=== PATIENT | male | born 1990 | race Caucasian/White ===

== ENCOUNTER 2022-12-08 21:56 | Emergency (ER) | payer OTHER, SELFPAY ==
[2022-12-08 22:11] VITALS: BP 128/71; PULSE 87; RESP 18; TEMP 36.8; O2SAT 99; BMI 26.6
--- NOTE | 2022-12-08 22:59 | CTR_ITS ---
PROCEDURE INFORMATION: Exam: CT Maxillofacial With Contrast Exam date and time: 12/08/2022 11:17 PM Age: 32 years old Clinical indication: Injury or trauma; Blunt trauma (contusions or hematomas); Patient HX: Patient playing baseball and sustained a blow to left maxilla from a baseball. Swelling to left maxilla. ; Additional info: Patient with trauma TECHNIQUE: Imaging protocol: Computed tomography of the face with contrast. Radiation optimization: All CT scans at this facility use at least one of these dose optimization techniques: automated exposure control; mA and/or kV adjustment per patient size (includes targeted exams where dose is matched to clinical indication); or iterative reconstruction. Contrast material: OMNI 350; Contrast volume: 100 ml; Contrast route: INTRAVENOUS (IV); REPORTING DATA: Count of CT and Cardiac NM exams in prior 12 months: This patient has received 0 known CTs and 0 known cardiac nuclear medicine studies in the 12 months prior to the current study. COMPARISON: No relevant prior studies available. RADIATION DOSE METRICS: Total DLP (mGy-cm): 578.08 FINDINGS: Orbital cavities: Orbits are normal. Globes are unremarkable. Bones/joints: Comminuted bilateral nasal fracture with soft tissue swelling over the nose. Paranasal sinuses: Severe left sphenoid sinus disease and mild to moderate left maxillary sinus disease versus high density posttraumatic fluid from nasal fracture. Soft tissues: See Bones/joints finding. CT/CT facial bones w con [id number] IMPRESSION: 1. Severe left sphenoid sinus disease and mild to moderate left maxillary sinus disease versus high density posttraumatic fluid from nasal fracture. 2. Comminuted bilateral nasal fracture, [id number], with soft tissue swelling over the nose, [id number]-right.
[2022-12-08 23:08] VITALS: BP 130/80; PULSE 82; RESP 16; O2SAT 97
[2022-12-08] MEDS: ketorolac 30 mg/mL INJ IVP (23:10)
[2022-12-08] MEDS: tetanus-diphtheria tox (adult) 0.5 mL SDV IM (23:11)
[2022-12-08] MEDS: iohexol 350 mg/mL 500 mL Btl (per mL) IV (23:21)
--- NOTE | 2022-12-09 00:19 | W.ED.TRAUMA ---
HPI - Trauma General: Chief Complaint: Trauma Stated Complaint: nose injury Time Seen by Provider: 12/08/22 22:27 History of Present Illness: Patient is a 32-year-old man that presents to the emergency department with facial trauma. Patient states he was playing softball when he took a line drive to the face. He denies LOC. He has ecchymosis and swelling noted to left eye and bilateral cheeks. He reports congestion. He had epistaxis immediately but none recently. Associated symptoms: Reports epistaxis; Denies abdominal pain, back pain, chest pain, chills, confusion, dizziness, fever(s), headache(s), nausea or vomiting Review of Systems General: Reports: 10 or more systems reviewed and unremarkable except in HPI and below Const: Denies: fever(s), chills, change in appetite, change in weight, fatigue or malaise Eyes: Denies: change in vision, eye discomfort, eye discharge or eye redness ENMT: Reports: nasal congestion, epistaxis and sinus pain; Denies: throat pain, enlarged tonsils, odynophagia, hoarseness, ear or mastoid pain, ear discharge, change in hearing, tinnitus, nasal discharge or post nasal drip Card: Denies: chest pain, palpitations, irregular heart rhythm, edema, dyspnea on exertion, orthopnea or leg pain with exertion Resp: Denies: dyspnea, productive cough, non-productive cough, wheezing, stridor or chest congestion GI: Denies: abdominal pain, nausea, vomiting, dysphagia, diarrhea, constipation, bloating, GI cramping or hematochezia : Denies: flank pain, dysuria, urinary frequency, urinary urgency, urinary hesitancy, oliguria or hematuria Musc: Denies: neck pain, back pain, extremity pain, joint pain, joint swelling, joint redness, joint warmth or muscle weakness Skin/Breast: Denies: rash, pruritus, erythema, photosensitivity or new lesions Neuro: Denies: headache(s), numbness in extremities, weakness in extremities, sensory changes, lack of coordination, difficulty walking, frequent falls, dizziness, confusion, Slurred speech present, difficulty communicating thoughts, seizure-like activity or involuntary movements Endo: Denies: polyuria, polydipsia or tired all the time Sherif/Lymph: Denies: easy bruising or easy bleeding PFSH ED PFSH: Social History Smoking and tobacco status: former smoker Second hand smoke exposure: No Smoking risk assessment/counseling performed?: No Alcohol intake: never Desire information about alcohol rehabilitation?: No Counseling given: No Substance/Drug Use: never Desire information about substance/drug rehabilitation?: No Counseling given: No Adopted: No Caregiver/support person: No Lives independently: Yes Household members: family Housing: House Marital status: Number of children: 2 Highest education level completed: High School Graduate service: No Current occupational status: employed Physical Exam Const: COMMON NORMALS: no acute distress, patient oriented x3 and alert GENERAL APPEARANCE: cooperative ORIENTATION/CONSCIOUSNESS: Yes awake, Yes oriented to person, Yes oriented to place and Yes oriented to time HENMT: COMMON NORMALS: normocephalic and atraumatic HEAD & SCALP: normocephalic and atraumatic FACE & SINUS: normal facial exam FACE & SINUS IMAGES: 1. Erythema and edema/swelling 2. Erythema and edema/swelling 3. Ecchymosis 4. Edema MOUTH: Normal oral and palatal mucosa present THROAT: posterior oropharynx normal Eye: COMMON NORMALS: Equal, round and reactive pupils present, EOMs intact bilaterally, conjunctivae normal and no scleral icterus GENERAL EYE: appearance normal, both eyes and all related structures ALIGNMENT: Yes alignment normal PERIORBITAL: periorbital findings abnormal positive left periorbital swelling, periorbital tenderness, periorbital erythema and periorbital ecchymosis and positive bilateral periorbital swelling CONJUNCTIVA: Yes conjunctivae normal PUPIL: Yes Equal, round and reactive pupils present Neck/C-Spine: COMMON NORMALS: full ROM GENERAL: Yes normal visual inspection Lymph: LYMPHATIC: no lymphadenopathy noted Chest: COMMONS NORMALS: normal inspection of the chest Breast/axilla inspection: Yes no chest deformity, asymmetry, normal contours, no nodules, masses, tenderness Resp: COMMON NORMALS: normal respiratory effort, No retractions, No use of accessory muscles and clear to auscultation bilaterally EFFORT & INSPECTION: Yes able to speak in complete sentences and Yes symmetric chest movement AUSCULTATION: clear to auscultation bilaterally Cardio: COMMON NORMALS: regular rate, regular rhythm and Peripheral pulses 2+ throughout RATE: regular rate RHYTHM: regular rhythm PERIPHERAL PULSES: Peripheral pulses 2+ throughout GI: COMMON NORMALS: Normal to inspection, nondistended, normoactive bowel sounds present, Soft to palpation, non-tender and No hepatosplenomegaly present INSPECTION: Yes normal to inspection AUSCULTATION: Yes normoactive bowel sounds PALPATION: Yes Soft to palpation and Yes No hepatosplenomegaly present RECTAL EXAM: Yes deferred Extremity: COMMON NORMALS: normal to inspection GENERAL: Yes normal exam except as noted Neuro: COMMON NORMALS: patient oriented x3 SENSORIUM/ORIENTATION: Yes alert, Yes oriented to person, Yes oriented to place and Yes oriented to time CRANIAL NERVES: Yes CN normal except as noted Psych: COMMON NORMALS: mental status grossly normal, Normal thought process present, cooperative, activity/motor behavior normal, denies homicidal ideation and denies suicidal ideation THOUGHT PROCESS: Normal thought process present Skin: COMMON NORMALS: no rashes or lesions noted, no wounds and turgor normal GENERAL SKIN EXAM: no rashes or lesions noted and turgor normal Course Vital Signs: Vital signs: Vital Signs Temperature 98.2 F 12/08/22 22:11 Pulse Rate 82 12/08/22 23:08 Respiratory Rate 16 12/08/22 23:08 Blood Pressure 130/80 12/08/22 23:08 Pulse Oximetry 97 12/08/22 23:08 MDM - Trauma Medical Decision Making Patient was evaluated in the emergency department for complaints of facial trauma. Patient underwent a CT of his facial bones which revealed comminuted bilateral nasal fracture, left greater than right with soft tissue swelling over the nose and severe left sphenoid and moderate left maxillary sinus posttraumatic fluid collection. Unfortunately, radiologist did not comment on any potential septal hematoma. I updated patient's tetanus and gave him 30 mg of Toradol for pain. He did have improvement in his symptoms. Referral to oral maxillofacial surgery of [place]. Dr. Galan will be happy to see the patient. I reviewed CT findings with surgeon; he is requested imaging to be uploaded to [facility] PACS. Patient is to call surgeon office on Sunday. All questions were answered Lab Data Radiology Impressions Face CT 12/08/22 22:59 IMPRESSION: 1. Severe left sphenoid sinus disease and mild to moderate left maxillary sinus disease versus high density posttraumatic fluid from nasal fracture. 2. Comminuted bilateral nasal fracture, [id number]-right, with soft tissue swelling over the nose, [id number]-right. Discharge Plan Discharge Patient Disposition: Home Clinical Impression: Closed fracture nasal bone, Contusion of face Condition: Stable Prescriptions: New ketorolac 10 mg tablet 10 mg PO TID PRN (Reason: pain) 5 Days Qty: 15 0RF hydrocodone-acetaminophen 5-325 mg tablet 1 tab PO Q8H PRN (Reason: pain) Qty: 7 0RF No Action pantoprazole [Protonix] 40 mg tablet,delayed release (DR/EC) 40 mg PO DAILY Qty: 30 2RF sucralfate [Carafate] 1 gram tablet 1 g PO BID Qty: 30 2RF Discharge Orders: Discharge ED (Routine); Ordered 12/09/22 Ordered By: Juan Carlos Madsen Referrals: Sherin Yusuf, MANAGEMENT ENGINEER-C [Primary Care Provider] - Discharge Diet: Advance as tolerated Discharge Activity: Resume usual activity Patient Instructions: Nasal Fracture (ED), Opioid Safety, Pain Management Activity Restrictions/Additional Instructions: Please follow-up with Dr. Galan. Call his office Sunday for an appointment. He can be reached at The address is [place]. [place] [address] and [facility] Ice to the face Tylenol or NSAIDs, like ketorolac for mild pain. Coding Level of Care Code ED Patient Ambassador for Malcolm Rinaldi
[2022-12-09 01:06] VITALS: BP 118/72; PULSE 65; RESP 16; O2SAT 99
== END 2022-12-09 01:08 | disposition home or self-care (01) ==
PROVIDERS: Emergency Provider Nurse Practitioner; PCP Nurse Practitioner
DX: S02.2XXA Fracture of nasal bones, initial encounter for closed fracture (principal); W50.0XXA Accidental hit or strike by another person, initial encounter; Y93.64 Activity, baseball
CPT/HCPCS: 70487; 90471; 90714; 96374; 99285; J1885; Q9967

== ENCOUNTER 2024-06-02 13:26 | Emergency (ER) | payer OTHER, SELFPAY ==
[2024-06-02 13:29] VITALS: BP 169/85; PULSE 79; TEMP 36.6; O2SAT 100; BMI 26.9
--- NOTE | 2024-06-02 15:55 | ED_ITS ---
Documented by User: CLAUDIA Gonzalez 06/02/24 16:52 HPI - General Adult 2 General: Chief complaint: Upper Respiratory Infection Stated complaint: sinus and neck pressure Time Seen by Provider: 06/02/24 15:40 Source: patient Mode of arrival: ambulatory Limitations: no limitations History of Present Illness: Patient is a 34-year-old male presents to ED today with a complaint of severe pain to his left retro-orbital region and frontal headache. He states pain seems to radiate into the back of his head and he has severe pain at the base of his skull. 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 He initially thought there could be something wrong with his eye, thus he sought an appointment to see Dr. Gillette. He states the pressures of his eye were normal. Dr. Gillette did not feel he needed a dilated eye exam. Patient states the symptoms have been present for approximately 2 weeks. He feels like symptoms are fairly constant but they do have brief severe exacerbations. He thinks symptoms are worse with bending over. He has not noticed any visual changes or double vision. He has not noticed any drooping or swelling to his face. He has not had fevers. Patient has not been ill recently. He is not having any nasal congestion or discharge. He did have a few dental extractions a month or so ago. Patient is not having any pain with range of motion of his neck. He has not noticed any swollen lymph nodes. Patient has taken up to 1500 mg of Tylenol that does not even touch the pain . Location: head, face and eyes Severity: severe Quality: sharp Pain Consistency: constant Relieving factors: none Associated symptoms: Reports headache(s); Deny chest pain, confusion, dyspnea, malaise, nausea, rash or vomiting Treatments prior to arrival: other (Tylenol) Related Data Home Medications Medication Instructions Recorded Confirmed No Known Home Medications 06/02/24 06/02/24 Allergies Allergy/AdvReac Type Severity Reaction Status Date / Time cefaclor [From [facility]] Allergy ALGY-Hives Verified 06/02/24 13:33 Review of Systems 2 Const: Denies: fever(s), chills, body aches, change in appetite, fatigue or malaise Eyes: Denies: change in vision, blurry vision, blind spots, photophobia, eye discharge, floaters or seeing flashes ENMT: Reports: sinus pain; Denies: throat pain, odynophagia, nasal discharge or nasal congestion Card: Denies: chest pain Resp: Denies: dyspnea GI: Denies: nausea or vomiting Musc: Denies: neck pain, back pain, extremity pain, extremity swelling, joint pain or joint swelling Skin/Breast: Denies: rash Neuro: Reports: headache(s); Denies: numbness in extremities, weakness in extremities, sensory changes, lack of coordination, difficulty walking, dizziness or confusion PFSH ED 2 PFSH: Social History Smoking and tobacco/nicotine status: former use of tobacco/nicotine Second hand smoke exposure: No Alcohol intake: never Substance/Drug Use: never Adopted: No Caregiver/support person: No Lives independently: Yes Household members: family Housing: House Marital status: Number of children: 2 Highest education level completed: High School Graduate service: No Current occupational status: employed Physical Exam 2 Const: COMMON NORMALS: no acute distress, average body habitus, patient oriented x3, no limitations, healthy appearing, alert and well nourished G ENERAL APPEARANCE: cooperative ORIENTATION/CONSCIOUSNESS: Yes awake, Yes oriented to person, Yes oriented to place and Yes oriented to time HENMT: COMMON NORMALS: normocephalic, atraumatic, external ears normal, Normal external nose present and Normal nasal mucous membranes and turbinates present HEAD & SCALP: normal to inspection, normocephalic and atraumatic FACE & SINUS: normal facial exam and sinuses nontender NOSE: Normal external nose present, Normal nares present, No nasal polyps present, Normal nasal mucous membranes and turbinates present, Normal septum present and No nasal discharge present EXTERNAL EAR: Yes external ears normal, Yes mastoids normal and Yes no periauricular adenopathy MOUTH: Normal oral and palatal mucosa present and lip normal TEETH & GINGIVA: Yes fair dentition THROAT: posterior oropharynx normal and tonsils normal Eye: COMMON NORMALS: Equal, round and reactive pupils present, EOMs intact bilaterally, conjunctivae normal and no scleral icterus GENERAL EYE: normal light reflex VISUAL ACUITY: Yes acuity normal CONJUNCTIVA: Yes conjunctivae normal SCLERA: sclerae normal CORNEA: Yes corneas normal P UPIL: Yes Equal, round and reactive pupils present DIRECT OPHTHALMOSCOPY: Yes normal light reflex OTHER: possible mild ptosis left Neck/C-Spine: COMMON NORMALS: full ROM, no lymphadenopathy and no meningeal signs GENERAL: Yes normal visual inspection Resp: COMMON NORMALS: normal respiratory effort and clear to auscultation bilaterally AUSCULTATION: clear to auscultation bilaterally Cardio: COMMON NORMALS: regular rate and regular rhythm RATE: regular rate RHYTHM: regular rhythm Neuro: AMANDA COMA SCALE: document GCS findings [place] coma scale eye opening: Spontaneous Amanda coma scale verbal response: Orientated Amanda coma scale motor response: Obey commands [place] coma scale total score: 15 COMMON NORMALS: patient oriented x3, CN's II-XII intact bilaterally, moves all extremities, no focal motor deficits and no sensory deficits noted S ENSORIUM/ORIENTATION: Yes alert, Yes oriented to person, Yes oriented to place and Yes oriented to time MENINGEAL SIGNS: Yes no meningeal signs Skin: COMMON NORMALS: no rashes or lesions noted GENERAL SKIN EXAM: no rashes or lesions noted Course 2 ED course: Patient is a nice 34 yo otherwise healthy male here for severe left retro- orbital pain/frontal headache radiating to the back/base of his head. It is sharp, severe, unilateral, worsened by positional change and unaffected by OTC analgesics. I think we have to consider emergent etiologies including cavernous sinus thrombosis, tumor, etc. I have spoken to Dr. Mejia and Dr. Valentino about imaging and we will do CT head and CTA venography. Vital Signs: Vital signs: Vital Signs Temperature 97.9 F 06/02/24 13:29 Pulse Rate 79 06/02/24 13:29 Blood Pressure 169/85 06/02/24 13:29 Pulse Oximetry 100 06/02/24 13:29 Oxygen Delivery Me thod Room Air 06/02/24 13:29 [facility] - General Adult Lab Data 06/02/24 16:50 06/02/24 16:[address] 06/02/24 16:10 IMPRESSION: 1. No acute intracranial abnormality. Head/Neck CTA 06/02/24 16:18 IMPRESSION: 1. Dural venous sinuses are patent. IMPRESSION: 1. No evidence of acute thrombosis or hemodynamically significant stenosis in the neck. REFERENCES: NASCET CRITERIA. The degree of stenosis in the cervical segment of the internal carotid artery is based on NASCET criteria. Normal is no stenosis. Mild is less than 50% stenosis. Moderate is 50-69% stenosis. Severe is 70% to 99% stenosis. Total occlusion is no detectable patent lumen. Laboratory Results WBC 8.11 10^3/uL (3.29-11.43) 06/02/24 16:50 RBC 4.70 10^6/uL (3.85-5.65) 06/02/24 16:50 Hgb 14.20 g/dL (11.27-16.99) 06/02/24 16:50 Hct 41.9 % (37-53) 06/02/24 16:50 MCV 89.1 fl (82-101) 06/02/24 16:50 MCH 30.2 pg (27-33) 06/02/24 16:50 MCHC 33.9 g/dL (30-55) 06/02/24 16:50 RDW 12.6 % (12.1-15.1) 06/02/24 16:50 Plt Count 220 10^3/cmm (157-399) 06/02/24 16:50 MPV 10.3 fL (7.4-10.4) 06/02/24 16:50 Neut % (Auto) 65.7 % 06/02/24 16:50 Lymph % (Auto) 23.6 % 06/02/24 16:50 [place] % (Auto) 7.5 % 06/02/24 16:50 Eos % (Auto) 2.7 % 06/02/24 16:50 Baso % (Auto) 0.4 % 06/02/24 16:50 Neut # (Auto) 5.33 10^3/uL (1.8-7.7) 06/02/24 16:50 Lymph # (Auto) 1.9 10^3/uL (0.8-4.8) 06/02/24 16:50 [place] # (Auto) 0.6 10^3/uL (0.2-0.9) 06/02/24 16:50 Eos # (Auto) 0.2 10^3/uL (0.0-0.8) 06/02/24 16:50 Baso # (Auto) 0.0 10^3/uL (0.0-0.1) 06/02/24 16:50 Nucleated RBC % (auto) 0 % 06/02/24 16:50 Nucleated RBCs # 0.0 /100WBC 06/02/24 16:50 Sodium 137 mmol/L (136-145) 06/02/24 16:50 Potassium 4.1 mmol/L (3.5-5.1) 06/02/24 16:50 Chloride 99 mmol/L (98-107) 06/02/24 16:50 Carbon Dioxide 29 mmol/L (22-29) 06/02/24 16:50 Anion Gap 13.1 (5-19) 06/02/24 16:50 BUN 11 mg/dL (6-20) 06/02/24 16:50 Creatinine 1.0 mg/dL (0.7-1.2) 06/02/24 16:50 GFR Calculation 86.6 mL/min (90-130) L 06/02/24 16:50 Glucose 91 mg/dL (65-115) 06/02/24 16:50 Calculated Osmolality 283 mOsm/kg (285-295) L 06/02/24 16:50 Calcium 9.4 mg/dL (8.5-10.5) 06/02/24 16:50 Total Bilirubin 0.4 mg/dL (0.15-1.2) 06/02/24 16:50 AST 29 U/L (0-40) 06/02/24 16:50 ALT 31 U/L (0-41) 06/02/24 16:50 Alkaline Phosphatase 81 U/L (40-130) 06/02/24 16:50 Total Protein 6.9 g/dL (6.6-8.7) 06/02/24 16:50 Albumin 4.5 g/dL (3.5-5.2) 06/02/24 16:50 Globulin 2.4 g/dL (1.3-4.6) 06/02/24 16:50 Discharge Plan Discharge Patient Disposition: Home Clinical Impression: Atypical migraine Condition: Stable Prescriptions: No Action No Known Home Medications Discharge Orders: Discharge ED (Routine); Ordered 06/02/24 Ordered By: Ralf Jaramillo Referrals: Sherin Yusuf, [employer] [Primary Care Provider] - Patient Instructions: Acute Headache (ED) Activity Restrictions/Additional Instructions: Follow-up with primary care as instructed. Return with any visual changes, severe worsening of pain, or other neurological symptoms you develop. Drink plenty of fluids. Sign Out Sign Out Data: Patient Sign Out occurred on 06/02/24 at 17:08. Patient's care was discussed, and care was transferred from CLAUDIA Gonzalez to CLAUDIA Luong. Coding Level of Care Code ED Social Science Manager for Chg [employer]wd Documented by User: CLAUDIA Luong 06/02/24 17:44 HPI - General Adult 2 General: Chief complaint: Upper Respiratory Infection Stated complaint: sinus and neck pressure Time Seen by Provider: 06/02/24 15:40 Related Data Home Medications Medication Instructions Recorded Confirmed No Known Home Medications 06/02/24 06/02/24 Allergies Allergy/AdvReac Type Severity Reaction Status Date / Time cefaclor [From Ceclor] Allergy ALGY-Hives Verified 06/02/24 13:33 PFSH ED 2 PFSH: Social History Smoking and tobacco/nicotine status: former use of tobacco/nicotine Second hand smoke exposure: No Alcohol intake: never Substance/Drug Use: never Adopted: No Caregiver/support person: No Lives independently: Yes Household members: family Housing: House Marital status: Number of children: 2 Highest education level completed: High School Graduate service: No Current occupational status: employed Physical Exam 2 Neuro: AMANDA COMA SCALE: document GCS findings [place] coma scale total score: 15 Course 2 Vital Signs: Vital signs: Vital Signs Temperature 97.9 F 06/02/24 13:29 Pulse Rate 79 06/02/24 13:29 Blood Pressure 169/85 06/02/24 13:29 Pulse Oximetry 100 06/02/24 13:29 Oxygen Delivery Ri thod Room Air 06/02/24 13:29 MDM - General Adult Medical Decision Making Care of patient transferred to [place] by CLAUDIA Gonzalez. Patient had previously sought ophthalmology for the retro-orbital pain and headache he has been having, this was normal. Basic lab work obtained here unremarkable. Also ordered a head CT as well as CTA to evaluate for any thrombosis, both of these images were unremarkable. Patient reexamined by myself, still stating he was having pain to the left eye, I do not appreciate any concerning physical exam findings such as infection or focal neurological deficit at this time. Will try dose of Decadron, however informed him that he needs to follow-up with primary care as if he keeps having pain he may warrant referral to neurology or other specialty. He is comfortable with discharge plan, told to return with any new or worsening and he agrees. Lab Data 06/02/24 16:50 06/02/24 16:[address] 06/02/24 16:10 IMPRESSION: 1. No acute intracranial abnormality. Head/Neck CTA 06/02/24 16:18 IMPRESSION: 1. Dural venous sinuses are patent. IMPRESSION: 1. No evidence of acute thrombosis or hemodynamically significant stenosis in the neck. REFERENCES: NASCET CRITERIA. The degree of stenosis in the cervical segment of the internal carotid artery is based on NASCET criteria. Normal is no stenosis. Mild is less than 50% stenosis. Moderate is 50-69% stenosis. Severe is 70% to 99% stenosis. Total occlusion is no detectable patent lumen. Laboratory Results WBC 8.11 10^3/uL (3.29-11.43) 06/02/24 16:50 RBC 4.70 10^6/uL (3.85-5.65) 06/02/24 16:50 Hgb 14.20 g/dL (11.27-16.99) 06/02/24 16:50 Hct 41.9 % (37-53) 06/02/24 16:50 MCV 89.1 fl (82-101) 06/02/24 16:50 MCH 30.2 pg (27-33) 06/02/24 16:50 MCHC 33.9 g/dL (30-55) 06/02/24 16:50 RDW 12.6 % (12.1-15.1) 06/02/24 16:50 Plt Count 220 10^3/cmm (157-399) 06/02/24 16:50 MPV 10.3 fL (7.4-10.4) 06/02/24 16:50 Neut % (Auto) 65.7 % 06/02/24 16:50 Lymph % (Auto) 23.6 % 06/02/24 16:50 [place] % (Auto) 7.5 % 06/02/24 16:50 Eos % (Auto) 2.7 % 06/02/24 16:50 Baso % (Auto) 0.4 % 06/02/24 16:50 Neut # (Auto) 5.33 10^3/uL (1.8-7.7) 06/02/24 16:50 Lymph # (Auto) 1.9 10^3/uL (0.8-4.8) 06/02/24 16:50 [place] # (Auto) 0.6 10^3/uL (0.2-0.9) 06/02/24 16:50 Eos # (Auto) 0.2 10^3/uL (0.0-0.8) 06/02/24 16:50 Baso # (Auto) 0.0 10^3/uL (0.0-0.1) 06/02/24 16:50 Nucleated RBC % (auto) 0 % 06/02/24 16:50 Nucleated RBCs # 0.0 /100WBC 06/02/24 16:50 Sodium 137 mmol/L (136-145) 06/02/24 16:50 Potassium 4.1 mmol/L (3.5-5.1) 06/02/24 16:50 Chloride 99 mmol/L (98-107) 06/02/24 16:50 Carbon Dioxide 29 mmol/L (22-29) 06/02/24 16:50 Anion Gap 13.1 (5-19) 06/02/24 16:50 BUN 11 mg/dL (6-20) 06/02/24 16:50 Creatinine 1.0 mg/dL (0.7-1.2) 06/02/24 16:50 GFR Calculation 86.6 mL/min (90-130) L 06/02/24 16:50 Glucose 91 mg/dL (65-115) 06/02/24 16:50 Calculated Osmolality 283 mOsm/kg (285-295) L 06/02/24 16:50 Calcium 9.4 mg/dL (8.5-10.5) 06/02/24 16:50 Total Bilirubin 0.4 mg/dL (0.15-1.2) 06/02/24 16:50 AST 29 U/L (0-40) 06/02/24 16:50 ALT 31 U/L (0-41) 06/02/24 16:50 Alkaline Phosphatase 81 U/L (40-130) 06/02/24 16:50 Total Protein 6.9 g/dL (6.6-8.7) 06/02/24 16:50 Albumin 4.5 g/dL (3.5-5.2) 06/02/24 16:50 Globulin 2.4 g/dL (1.3-4.6) 06/02/24 16:50 All radiology interpretation(s) finalized by discharge Discharge Plan Discharge Patient Disposition: Home Clinical Impression: Atypical migraine Condition: Stable Prescriptions: No Action No Known Home Medications Discharge Orders: Discharge ED (Routine); Ordered 06/02/24 Ordered By: Ralf Jaramillo Referrals: Sherin Yusuf FNP-C [Primary Care Provider] - Patient Instructions: Acute Headache (ED) Activity Restrictions/Additional Instructions: Follow-up with primary care as instructed. Return with any visual changes, severe worsening of pain, or other neurological symptoms you develop. Drink plenty of fluids. Sign Out Sign Out Data: Patient Sign Out occurred on 06/02/24 at 17:08. Patient's care was discussed, and care was transferred from CLAUDIA Gonzalez to CLAUDIA Luong. Coding Level of Care Code ED Social Science Manager for Malcolm Rinaldi
[2024-06-02 16:01] VITALS: BP 112/67; PULSE 73; O2SAT 93
--- NOTE | 2024-06-02 16:10 | CTR_ITS ---
PROCEDURE INFORMATION: Exam: CT Head Without Contrast Exam date and time: 06/02/2024 4:35 PM Age: 34 years old Clinical indication: Pain; Headache; Migraine; Aura effect not specified; Does respond to medication; Severity not specified; Additional info: L retro-orbital pain, [place] TECHNIQUE: Imaging protocol: Computed tomography of the head without contrast. Radiation optimization: All CT scans at this facility use at least one of these dose optimization techniques: automated exposure control; mA and/or kV adjustment per patient size (includes targeted exams where dose is matched to clinical indication); or iterative reconstruction. COMPARISON: CT angio headneck* [id number] 06/02/2024 4:35 PM RADIATION DOSE METRICS: Total DLP (mGy-cm): 1143.19 FINDINGS: Brain: No evidence of intra-axial or extra-axial hemorrhage. No mass effect or midline shift. Freitas-white differentiation is maintained. Basilar cisterns are patent. Cerebral ventricles: No hydrocephalus. Paranasal sinuses: The visualized paranasal sinuses are well aerated. Mastoid air cells: The visualized mastoids and middle ears are clear. Bones: Calvarium is intact. No evidence of acute fracture. Soft tissues: No gross soft tissue abnormality. CT/CT head wo con* [id number] IMPRESSION: 1. No acute intracranial abnormality.
--- NOTE | 2024-06-02 16:18 | CTR_ITS ---
PROCEDURE INFORMATION: Exam: CTA Head With Contrast, Venography Exam date and time: 06/02/2024 4:35 PM Age: 34 years old Clinical indication: Pain; Headache; Additional info: L retro-orbital pain, [place], CT venogram per prototcol TECHNIQUE: Imaging protocol: Computed tomography angiography of the head with contrast. Exam focused on the veins. 3D rendering (Not supervised by radiologist): MIP and/or 3D reconstructed images were created by the technologist. Radiation optimization: All CT scans at this facility use at least one of these dose optimization techniques: automated exposure control; mA and/or kV adjustment per patient size (includes targeted exams where dose is matched to clinical indication); or iterative reconstruction. Contrast material: OMNIPAQUE 350; Contrast volume: 100 ml; Contrast route: INTRAVENOUS (IV); COMPARISON: CT head wo con* [id number] 06/02/2024 4:35 PM RADIATION DOSE METRICS: Total DLP (mGy-cm): 645.5 FINDINGS: Superior sagittal sinus: Patent. Straight sinus: Patent. Transverse sinuses: Patent. Sigmoid sinuses: Patent. Internal jugular veins: The visualized internal jugular veins are patent. Brain: No evidence of intracranial hemorrhage. Freitas-white differentiation is grossly maintained. No evidence of midline shift. Superior ophthalmic veins are symmetric without evidence of dilatation. Cerebral ventricles: No evidence of hydrocephalus. Soft tissues: Unremarkable. PROCEDURE INFORMATION: Exam: CTA Neck With Contrast Exam date and time: 06/02/2024 4:35 PM Age: 34 years old Clinical indication: Pain; Headache; Additional info: L retro-orbital pain, [place], CT venogram per prototcol TECHNIQUE: Imaging protocol: Computed tomographic angiography of the neck with contrast. Exam focused on the cervical segments of the vasculature. 3D rendering (Not supervised by radiologist): MIP and/or 3D reconstructed images were created by the technologist. Radiation optimization: All CT scans at this facility use at least one of these dose optimization techniques: automated exposure control; mA and/or kV adjustment per patient size (includes targeted exams where dose is matched to clinical indication); or iterative reconstruction. Contrast material: OMNIPAQUE 350; Contrast volume: 100 ml; Contrast route: INTRAVENOUS (IV); COMPARISON: CT head wo con* [id number] 06/02/2024 4:35 PM RADIATION DOSE METRICS: Total DLP (mGy-cm): 645.5 FINDINGS: Deep veins: Right and left internal jugular veins are patent. The left internal jugular vein appears developmentally diminutive above the level of C5. Subclavian veins are patent. SVC and brachiocephalic veins are patent. Right common carotid artery: Patent. No evidence of hemodynamically significant stenosis. Right internal carotid artery: Patent. No evidence of hemodynamically significant stenosis. Right external carotid artery: Patent. Left common carotid artery: Patent. No evidence of hemodynamically significant stenosis. Left internal carotid artery: Patent. No evidence of hemodynamically significant stenosis. Left external carotid artery: Patent. Right vertebral artery: Patent. Left vertebral artery: Patent. Soft tissues: No gross soft tissue abnormality. No evidence of fluid collection or hematoma. Bones/joints: No evidence of acute fracture or subluxation of the cervical spine. CT/CT angio headneck* [id number] IMPRESSION: 1. Dural venous sinuses are patent. IMPRESSION: 1. No evidence of acute thrombosis or hemodynamically significant stenosis in the neck. REFERENCES: NASCET CRITERIA. The degree of stenosis in the cervical segment of the internal carotid artery is based on NASCET criteria. Normal is no stenosis. Mild is less than 50% stenosis. Moderate is 50-69% stenosis. Severe is 70% to 99% stenosis. Total occlusion is no detectable patent lumen.
[2024-06-02] MEDS: iohexol 350 mg/mL 500 mL Btl (per mL) IV (16:46)
[2024-06-02 17:04] LABS: Basophils % 0.4 %; Eosinophils # 0.2 10^3/uL (0.0-0.8); Eosinophils % 2.7 %; Hematocrit 41.9 % (37-53); Lymphocytes # 1.9 10^3/uL (0.8-4.8); Lymphocytes % 23.6 %; Mean Corpuscular HGB Conc 33.9 g/dL (30-55); Mean Corpuscular Hemoglobin 30.2 pg (27-33); Mean Corpuscular Volume 89.1 fl (82-101); Mean Platelet Volume 10.3 fL (7.4-10.4); Monocytes # 0.6 10^3/uL (0.2-0.9); Monocytes % 7.5 %; Neutrophils # 5.33 10^3/uL (1.8-7.7); Neutrophils % 65.7 %; Nucleated Red Blood Cells % 0 %; Platelet Count 220 10^3/cmm (157-399); Red Cell Distribution Width 12.6 % (12.1-15.1); White Blood Count 8.11 10^3/uL (3.29-11.43)
[2024-06-02 17:21] LABS: Alanine Aminotransferase 31 U/L (0-41); Albumin Level 4.5 g/dL (3.5-5.2); Alkaline Phosphatase 81 U/L (40-130); Blood Urea Nitrogen 11 mg/dL (6-20); Calcium 9.4 mg/dL (8.5-10.5); Carbon Dioxide 29 mmol/L (22-29); Chloride 99 mmol/L (98-107); Creatinine Clr Calc Pharmacy 106.3008; Globulin 2.4 g/dL (1.3-4.6); Glomerular Filtration Rate 86.6 mL/min (90-130); Glucose 91 mg/dL (65-115); Osmolality Calculated 283 mOsm/kg (285-295); Sodium 137 mmol/L (136-145); Total Bilirubin 0.4 mg/dL (0.15-1.2); Total Protein 6.9 g/dL (6.6-8.7)
[2024-06-02 17:22] LABS: Anion Gap 13.1 (5-19); Aspartate Amino Transferase 29 U/L (0-40); Potassium 4.1 mmol/L (3.5-5.1)
[2024-06-02 17:47] VITALS: BP 112/64; PULSE 79; O2SAT 97
[2024-06-02] MEDS: dexamethasone 10 mg/mL INJ IVP (18:20)
[2024-06-02 18:29] VITALS: BP 115/71; PULSE 61; O2SAT 98
== END 2024-06-02 18:21 | disposition home or self-care (01) ==
PROVIDERS: Physician Assistant; Emergency Provider Physician Assistant; PCP Nurse Practitioner
DX: G43.809 Other migraine, not intractable, without status migrainosus (principal); Z87.891 Personal history of nicotine dependence
CPT/HCPCS: 70450; 70496; 70498; 80053; 85025; 96374; 99285; J1100

== ENCOUNTER → 2025-03-26 13:18 | Outpatient (BNVA) | payer OTHER, SELFPAY | PROVIDERS: PCP Nurse Practitioner; Visit Provider Nurse Practitioner Family | DX: R05.9 Cough, unspecified (principal) | CPT/HCPCS: 71046 ==